=== PATIENT | male | born 1970 | race Caucasian/White ===

== ENCOUNTER 2020-01-08 10:58 | Outpatient (RCR) | payer OTHER, SELFPAY ==
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
--- NOTE | 2020-03-11 12:46 | HP.OT.NRP ---
GRUPO REYNOLDS was seen in my office for initial evaluation on . The following Plan of Care was established for this patient: This patient was last seen in our office 01/08/20. Pertinent comments regarding their Occupational therapy will appear below: PT was seen for FCE only At this point I will be discontinuing this patient from occupational therapy. I would be happy to see this patient again in the future if found appropriate by the physician. Thank you! Dhara Berrios, OTR/L, CHT
== END 2020-01-08 19:00 | disposition home or self-care (01) ==
LOC: OT 10:58
PROVIDERS: PCP Student in an Organized Health Care Education/Training Program; Referring Provider Student in an Organized Health Care Education/Training Program; Visit Provider Student in an Organized Health Care Education/Training Program
DX: M54.40 Lumbago with sciatica, unspecified side (principal); R29.898 Other symptoms and signs involving the musculoskeletal system; M54.2 Cervicalgia; G89.29 Other chronic pain; M54.12 Radiculopathy, cervical region; M54.31 Sciatica, right side
CPT/HCPCS: 97750

== ENCOUNTER 2020-06-12 06:44 | Emergency (ER) | payer OTHER, SELFPAY ==
[2020-06-12 06:46] VITALS: BP 156/87; PULSE 82; RESP 20; TEMP 36.9; O2SAT 97; BMI 33.2
--- NOTE | 2020-06-12 06:50 | ED.VISSUMM ---
- ER Visit Summary Date of Service: 06/12/20 Chief Complaint: Back pain, right anterior thigh pain History of Present Illness: The patient is a 49 M who has back pain and right anterior thigh pain. He states that he may have moved wrong because he woke up with pain this morning. The pain is in his lumbar spine area. He also has pain in the right anterior thigh. He states that he has had pain in both of these areas previously. He states he has a history of an L5 pinched nerve. He states that whenever he has exacerbations of pain it could be either on the right or left side. He took no medications for the pain at home. He has a history of a neck surgery as well as a lower back surgery. They attempted to remove the pinched nerve but it was adhered to the nerve at the time of surgery. He denies any bowel or bladder incontinence. He denies any fevers. Physical Examination: Vital signs reviewed. HEENT exam unremarkable. Heart is regular rate and rhythm without murmurs. Lungs are clear to auscultation. Abdomen is soft and nontender. His back is not specifically tender in any area. Extremities reveal no edema. He has no tenderness of the right anterior thigh. Skin exam normal. Neurologic exam normal. His reflexes are normal. I witnessed the patient ambulate. He ambulates with a limp but there is no leg weakness or dropfoot. Test Results: None performed Emergency Department Course and Treatment: The patient will be given a dose of morphine here for pain control. I will give him prednisone and non-steroidals for pain control at home. I will give him a course of prednisone to take at home to help with any inflammation that could be causing this as it does appear there is some radicular symptoms. He will need to follow-up with his PCP. Treatment Plan: [] Disposition: Discharge Impression: Lumbar back pain with radiculopathy This note was generated with [employer] dictation software. It may contain incorrect words, spelling, and punctuation that were not noted in review of the chart prior to signing ED Disposition - Plan for ED Patient: Disposition: Home or Assisted Living Instructions: ED LUMBAR RADICULOPATHY Prescriptions: Prednisone [Deltasone] 40 mg PO DAILY #8 tab Prescription Printed Naproxen [Naprosyn] 500 mg PO BID PRN #20 tab Prescription Printed Referrals: Varun Vogel DO [Primary Care Provider] -
[2020-06-12] MEDS: predniSONE 20 MG Tablet 40 MG PO (06:54)
[2020-06-12] MEDS: morphine 8 MG/ML Syringe 6 MG IM (06:54)
[2020-06-12 08:18] VITALS: BP 140/94; PULSE 79; RESP 16; O2SAT 95
[2020-06-12 09:09] VITALS: RESP 16
== END 2020-06-12 09:34 | disposition home or self-care (01) ==
LOC: ED 08:01
PROVIDERS: Emergency Provider Emergency Medicine; PCP Student in an Organized Health Care Education/Training Program
DX: M54.16 Radiculopathy, lumbar region (principal); K21.9 Gastro-esophageal reflux disease without esophagitis
CPT/HCPCS: 96372; 99282

== ENCOUNTER 2024-07-15 10:28 | Emergency (ER) | payer MEDICARE, OTHER, SELFPAY ==
[2024-07-15 10:29] VITALS: BP 174/100; PULSE 84; RESP 26; TEMP 36.1; O2SAT 93
[2024-07-15 10:36] VITALS: BMI 30.3
[2024-07-15] MEDS: Orphenadrine 60 MG/2 ML Ampul IM (11:23)
[2024-07-15] MEDS: Ketorolac 15 MG/ML Vial IV (11:23)
--- NOTE | 2024-07-15 11:24 | ED.VIS.BACK ---
HPI <BUD Centeno - Last Filed: 07/15/24 12:30> History of Present Illness Chief Complaint: Back Narrative Narrative: 54-year-old male presents with low back pain that flared up while he was putting a plate into the microwave yesterday. Pain is focused in the center of his low back. There is no radiation to his lower extremities, no weakness, no numbness or tingling, no saddle anesthesia or bladder bowel incontinence. He has chronic back issues and reports having lumbar surgery around 2018 but states they got in there and could not do anything. He used to sees Dr. Rehman and pain management. He takes [id number] Tylenol as needed. PFS <BUD Centeno - Last Filed: 07/15/24 12:30> [facility] Home Medications ?Medication ?Instructions ?Recorded ?Last Taken ?Type aspirin 325 mg tablet 325 mg PO DAILY@0800 06/04/13 Unknown History atorvastatin 40 mg tablet 1 tab PO DAILY 06/12/20 Unknown History cyanocobalamin (vitamin B-12) 500 1,000 mcg PO DAILY 06/12/20 Unknown History mcg tablet duloxetine 60 mg capsule,delayed 1 tab PO DAILY 06/12/20 Unknown History release esomeprazole magnesium 40 mg 40 mg PO DAILY 06/12/20 Unknown History capsule,delayed release fish oil 400 mg-flaxseed 400 800 mg PO DAILY 06/12/20 Unknown History mg-prim,blk boat operator,borag oils 200 mg capsule folic acid 1 mg tablet 1 mg PO DAILY 06/12/20 Unknown History glucosamine sulf dipot 2 ea PO DAILY 06/12/20 Unknown History chlr,msm,chond 550 mg-C 30 mg-stephani 1 mg capsule meloxicam 15 mg tablet 15 mg PO DAILY 06/12/20 Unknown History naproxen 500 mg tablet 500 mg PO BID PRN #20 tabs 06/12/20 Unknown Rx prednisone 20 mg tablet 40 mg (2 x 20 mg) PO DAILY #8 tabs 06/12/20 Unknown Rx metaxalone 800 mg tablet 800 mg PO TID PRN muscle pain #14 07/15/24 Unknown Rx tabs naproxen 500 mg tablet (Naprosyn) 500 mg PO BID PRN pain #20 tabs 07/15/24 Unknown Rx Allergy/AdvReac Type Severity Reaction Status Date / Time No Known Allergies Allergy Verified 06/12/20 06:49 Social History Smoking Status: Current every day smoker tobacco type: cigarettes ROS <BUD Centeno - Last Filed: 07/15/24 12:30> ROS ED ROS Narrative Constitutional: Negative for fever, chills, malaise. GI: Negative for abdominal pain, nausea, vomiting. : Negative for dysuria. Neuro: Negative for motor/sensory dysfunction. EXAM <BUD Centeno - Last Filed: 07/15/24 12:30> Physical Exam Narrative Exam Narrative: CONST: Patient sitting in no acute distress. EYES: Normal inspection. NECK: Normal inspection. RESP: No respiratory distress, CTAB. CVS: Regular rate and rhythm, no murmur, no gallop. Back: Normal inspection, healed upper midline lumbar surgical scar. Tender palpation over lower lumbar spine without step-offs or crepitus. SKIN: Color normal, no rash, warm, dry, intact. EXTREMITIES: Normal appearance, no pedal edema. 5/5 strength in bilateral hip flexion, knee flexion/extension, DF/PF. Normal sensation. 2+ DP pulses. NEURO: Alert and answering questions appropriately. PSYCH: Normal affect. Const Vital Signs: 07/15/24 10:29 Temperature 97 F L Temperature Source Temporal Pulse Rate 84 Respiratory Rate 26 H Blood Pressure 174/100 H Blood Pressure Mean 124 Pulse Ox 93 Oxygen Delivery Method Room Air <Dr. Vernon Braden DO - Last Filed: 07/15/24 15:05> Physical Exam Const Vital Signs: 07/15/24 10:29 Temperature 97 F L Temperature Source Temporal Pulse Rate 84 Respiratory Rate 26 H Blood Pressure 174/100 H Blood Pressure Mean 124 Pulse Ox 93 Oxygen Delivery Method Room Air MDM <BUD Centeno - Last Filed: 07/15/24 12:30> MDM MDM Narrative Medical decision making narrative: Differential: Lumbar strain, lumbar radiculopathy, No signs or symptoms of epidural abscess or cauda equina 54-year-old male was evaluated for acute on chronic lumbar pain. It started after reaching into a microwave. No trauma or falls. He has no red flag symptoms and lower extremity MSPs are intact. Lumbar x-ray shows no acute findings. He was treated for muscle strain with Toradol and Norflex with some improvement and prescribed. Naproxen and metaxalone for home. He can also take Tylenol. He has seen Dr. Rehman and pain management in the past and I recommended follow-up. He was discharged in stable condition. Radiography Diagnostic Testing: Clinical Impression(s) from Imaging Studies Lumbar Spine X-Ray 07/15/24 11:30 IMPRESSION: No evidence of lumbar spinal fracture or spondylolisthesis. Degenerative changes Electronically Signed: Joe Perez MD at 12:28 EST , ED attending interpretation of lumbar spine shows no acute fracture and maintained alignment. <Dr. Vernon Braden, DO - Last Filed: 07/15/24 15:05> [facility] Narrative Medical decision making narrative: Differential: Lumbar strain, lumbar radiculopathy, No signs or symptoms of epidural abscess or cauda equina 54-year-old male was evaluated for acute on chronic lumbar pain. It started after reaching into a microwave. No trauma or falls. He has no red flag symptoms and lower extremity MSPs are intact. Lumbar x-ray shows no acute findings. He was treated for muscle strain with Toradol and Norflex with some improvement and prescribed. Naproxen and metaxalone for home. He can also take Tylenol. He has seen Dr. Rehman and pain management in the past and I recommended follow-up. He was discharged in stable condition. ED attending note: I evaluated the patient in conjunction with the ANUJ. I agree with his/her statements and above findings. I have personally performed a face to face assessment of the patient and have reviewed the ANUJ Note. I performed a substantive portion of the visit including all aspects of the following. I personally saw the patient performed chart review, physical exam, reviewed labs, imaging (if obtained), and formulated a treatment and management plan. 54-year-old male here with atraumatic back pain. Patient denies any saddle anesthesia, urinary retention, bowel or bladder incontinence, lower extremity weakness, fever or IV drug use, no recent spinal manipulation or surgery, no recent urinary catheterization. Intact sensation L1-S1 dermatomal distributions. Intact 5/5 strength in hip flexion (T12-L3). Knee extension (L2-L4). Ankle dorsiflexion (L4-L5). Ankle plantar flexion (S1). Great toe extension (L5). 2+ patellar and Achilles DTRs. Low suspicion for space-occupying lesion of spine including epidural abscess, conus medullaris, herniated disc given lack of historical, physical exam findings. Patient has a low back pain red flag score and as such I do not think he requires emergent MRI or transfer for spine consultation. I suspect he suffered from musculoskeletal injury. X-ray was read and personally reviewed, interpreted myself showed no evidence of obvious bony abnormality. Radiologist agrees my interpretation. Will give symptomatic therapy here and discharged with symptomatic therapy and close pain management follow-up. This note was generated with [employer] dictation software. It may contain incorrect words, spelling, and punctuation that were not noted in review of the chart prior to signing. Radiography Diagnostic Testing: Clinical Impression(s) from Imaging Studies Lumbar Spine X-Ray 07/15/24 11:30 IMPRESSION: No evidence of lumbar spinal fracture or spondylolisthesis. Degenerative changes Electronically Signed: Joe Perez MD at 12:28 EST , Discharge Plan Triage Chief Complaint: Back ED Midlevel Provider: Krystyna Ball ED Provider: Vernon Braden Dx/Rx/DC Orders Clinical Impression: Lumbar back pain Instructions: Back Basics: A Healthy Spine Prescriptions: New naproxen [Naprosyn] 500 mg tablet 500 mg PO BID PRN (Reason: pain) Qty: 20 0RF metaxalone 800 mg tablet 800 mg PO TID PRN (Reason: muscle pain) Qty: 14 0RF No Action aspirin 325 MG tablet 325 mg PO DAILY@0800 atorvastatin 40 MG tablet 1 tab PO DAILY meloxicam 15 MG tablet 15 mg PO DAILY cyanocobalamin (vitamin B-12) 500 MCG tablet 1,000 mcg PO DAILY esomeprazole magnesium 40 MG capsule,delayed release(DR/EC) 40 mg PO DAILY folic acid 1 MG tablet 1 mg PO DAILY duloxetine 60 MG capsule 1 tab PO DAILY fish,flaxseed oil-e.prim-bcurr 400 MG capsule 800 mg PO DAILY glucos sul [id number]-[id number]-C-Mn 1 EACH capsule 2 ea PO DAILY prednisone 20 MG tablet 40 mg PO DAILY Qty: 8 0RF Rx Instructions: With food naproxen 500 MG tablet 500 mg PO BID PRN Qty: 20 0RF Primary Care Provider: Varun Vogel Referrals: Varun Vogel DO [Primary Care Provider] - Matthew Lovell MD [Med Staff - Active Staff] - Activity Restrictions/Additional Instructions: You can also take pece-mij-dsjttpt Tylenol every 6 hours. Print Language: Malian Disposition Disposition: Home, Self Care Discharge Date/Time: 07/15/24 12:31
--- NOTE | 2024-07-15 11:30 | RAD_ITS ---
INDICATION: pain EXAMINATION/TECHNIQUE: X-RAY - XR Spine Lumbar 2 or 3 Views COMPARISON: No relevant prior comparison study available FINDINGS: VERTEBRAE: Preserved vertebral body height. No fracture. No spondylolisthesis. Preservation of the normal lumbar lordosis. Mild dextroscoliosis. DISCS: Multilevel disc space narrowing and endplate spondylosis. INCLUDED ABDOMEN: Included bowel gas pattern is non-obstructive. RAD/Lumbar Spine 2 or 3 Views IMPRESSION: No evidence of lumbar spinal fracture or spondylolisthesis. Degenerative changes Electronically Signed: Joe Perez MD at 12:28 EST ,
== END 2024-07-15 12:31 | disposition home or self-care (01) ==
PROVIDERS: Emergency Provider Emergency Medicine; PCP Student in an Organized Health Care Education/Training Program; Visit Provider Emergency Medicine
DX: M54.50 Low back pain, unspecified (principal); F17.210 Nicotine dependence, cigarettes, uncomplicated
CPT/HCPCS: 72100; 96372; 96374; 99282